=== PATIENT | female | born 1950 | race Caucasian/White ===

== ENCOUNTER → 2023-08-23 11:07 | Outpatient (REF) | payer MEDICARE, BC, SELFPAY ==
[2023-08-23 11:42] LABS: % Basophils 0.6 % (0-2); % Eosinophils 0.8 % (0-6); % Immature Granulocytes 0.2 % (0-0.5); % Lymphocytes 35.3 % (20.5-51.1); % Monocytes 8.9 % (1.7-9.3); % Neutrophils 54.2 % (42.2-75.2); Absolute Lymphocytes 1.7 10^3/uL (1.2-3.4); Absolute Monocytes 0.4 10^3/uL (0.1-0.6); Absolute Neutrophils 2.6 10^3/uL (1.4-6.5); Hematocrit 33.4 % (37.0-47.0); Hemoglobin 11.4 g/dL (12.0-16.0); Mean Corp Hgb Conc. 34.1 g/dL (33.0-37.0); Mean Corpuscular Hgb 33.5 pg (27.0-31.0); Mean Corpuscular Volume 98.2 fL (81.0-99.0); Mean Platelet Volume 9.1 fL (7.4-10.4); Nucleated Red Blood Cells % 0 %; Platelet Count 299 10^3/uL (130-400); Red Cell Dist. Width 12.8 % (11.5-14.5); White Blood Cell Count 4.9 10^3/uL (4.8-10.8)
[2023-08-23 12:03] LABS: Blood Urea Nitrogen 12 mg/dl (7-17); Calcium 9.2 mg/dl (8.4-10.2); Carbon Dioxide 27 mmol/L (22-30); Chloride 100 mmol/L (98-107); Glucose 98 mg/dl (70-99); Potassium 4.7 mmol/L (3.5-5.1); Sodium 130 mmol/L (135-145); eGFR > 60.00
== END ==
LOC: REG 11:07
PROVIDERS: ATTENDING PHYSICIAN Nurse Practitioner Family
DX: Z01.818 Encounter for other preprocedural examination (principal)
CPT/HCPCS: 36415; 80048; 85025; 93005

== ENCOUNTER → 2024-10-18 11:34 | Outpatient (REF) | payer MEDICARE, BC, SELFPAY | LOC: HWRAD 11:34 | PROVIDERS: ATTENDING PHYSICIAN Nurse Practitioner Primary Care | DX: E78.2 Mixed hyperlipidemia (principal) | CPT/HCPCS: 75571 ==

== ENCOUNTER → 2024-12-05 09:10 | Outpatient (REF) | payer MEDICARE, BC, SELFPAY ==
[2024-12-05 09:44] LABS: % Basophils 0.2 % (0-2); % Eosinophils 0.7 % (0-6); % Immature Granulocytes 0.4 % (0-0.5); % Lymphocytes 32.2 % (20.5-51.1); % Monocytes 8.5 % (1.7-9.3); Absolute Lymphocytes 1.8 10^3/uL (1.2-3.4); Absolute Monocytes 0.5 10^3/uL (0.1-0.6); Absolute Neutrophils 3.3 10^3/uL (1.4-6.5); Hematocrit 35.1 % (37.0-47.0); Hemoglobin 11.8 g/dL (12.0-16.0); Mean Corp Hgb Conc. 33.6 g/dL (33.0-37.0); Mean Corpuscular Hgb 34.7 pg (27.0-31.0); Mean Corpuscular Volume 103.2 fL (81.0-99.0); Mean Platelet Volume 9.1 fL (7.4-10.4); Nucleated Red Blood Cells % 0 %; Platelet Count 283 10^3/uL (130-400); Red Cell Dist. Width 13.9 % (11.5-14.5); White Blood Cell Count 5.6 10^3/uL (4.8-10.8)
[2024-12-05 09:45] VITALS: BP 154/83; BP 158/68; BP_SYST 82; BP_SYST 91
[2024-12-05 09:55] LABS: PT 12.6 Sec (11.4-14.6)
[2024-12-05] MEDS: ATIVAN 0.5 MG IV (10:13)
[2024-12-05] MEDS: NSS (PRESERVATIVE FREE) 0.25 ML IV (10:14)
[2024-12-05 11:07] VITALS: BP 139/78; BP_SYST 81
[2024-12-05 11:10] VITALS: BP 124/84; BP_SYST 85
[2024-12-05 11:15] VITALS: BP 142/77; BP_SYST 81
== END ==
LOC: RADI 09:10
PROVIDERS: ATTENDING PHYSICIAN Internal Medicine Hematology & Oncology; FAMILY PHYSICIAN Nurse Practitioner Primary Care
DX: D47.2 Monoclonal gammopathy (principal); D68.8 Other specified coagulation defects
CPT/HCPCS: 88305; 88311; 88312; 36415; 38222; 77012; 85025; 85610; 88313

== ENCOUNTER → 2025-01-01 09:08 | Outpatient (REF) | payer MEDICARE, BC, SELFPAY | LOC: RCS 09:08 | PROVIDERS: ATTENDING PHYSICIAN Nurse Practitioner Primary Care; OTHER PHYSICIAN Internal Medicine Hematology & Oncology | DX: I10 Essential (primary) hypertension (principal); E78.2 Mixed hyperlipidemia; R06.09 Other forms of dyspnea | CPT/HCPCS: 93306 ==

== ENCOUNTER → 2025-02-13 11:42 | Outpatient (REF) | payer MEDICARE, BC, SELFPAY ==
[2025-02-13 12:32] LABS: Hematocrit 33.3 % (37.0-47.0); Hemoglobin 11.3 g/dL (12.0-16.0); Mean Corp Hgb Conc. 33.9 g/dL (33.0-37.0); Mean Corpuscular Volume 100.0 fL (81.0-99.0); Nucleated Red Blood Cells % 0 %; Platelet Count 283 10^3/uL (130-400); Red Cell Dist. Width 12.4 % (11.5-14.5)
[2025-02-13 12:55] LABS: Blood Urea Nitrogen 12 mg/dl (7-17); Calcium 8.8 mg/dl (8.4-10.2); Carbon Dioxide 25 mmol/L (22-30); Chloride 99 mmol/L (98-107); Glucose 87 mg/dl (70-99); Potassium 4.6 mmol/L (3.5-5.1); Sodium 131 mmol/L (135-145); eGFR > 60.00
== END ==
LOC: REG 11:42
PROVIDERS: ATTENDING PHYSICIAN Student in an Organized Health Care Education/Training Program
DX: Z01.818 Encounter for other preprocedural examination (principal)
CPT/HCPCS: 36415; 80048; 85025; 93005

== ENCOUNTER 2025-02-26 06:14 | Day surgery (SDC) | payer MEDICARE, BC, SELFPAY ==
[2025-02-26 08:27] VITALS: BMI 25.4
[2025-02-26 08:31] VITALS: BMI 25.4
[2025-02-26] MEDS: CELEBREX 200 MG PO (08:48)
[2025-02-26] MEDS: NORMOSOL-R/PLASMALYTE-A 1000 IV (08:49)
[2025-02-26 08:54] VITALS: BP 160/97
[2025-02-26 10:37] VITALS: BP 124/86
[2025-02-26 10:45] VITALS: BP 138/84
[2025-02-26 11:00] VITALS: BP 158/88
[2025-02-26 11:15] VITALS: BP 155/94
== END 2025-02-26 11:35 | disposition home or self-care (01) ==
LOC: SDS 06:14
PROVIDERS: ATTENDING PHYSICIAN Student in an Organized Health Care Education/Training Program
DX: T84.84XA Pain due to internal orthopedic prosthetic devices, implants and grafts, initial encounter (principal)
CPT/HCPCS: 20680

== ENCOUNTER → 2025-04-04 14:42 | Outpatient (REF) | payer MEDICARE, BC, SELFPAY | LOC: HWRAD 14:42 | PROVIDERS: ATTENDING PHYSICIAN Nurse Practitioner Primary Care | DX: E04.1 Nontoxic single thyroid nodule (principal) | CPT/HCPCS: 76536 ==

== ENCOUNTER → 2025-04-16 13:45 | Outpatient (REF) | payer MEDICARE, BC, SELFPAY | LOC: EMG 13:45 | PROVIDERS: ATTENDING PHYSICIAN Internal Medicine Rheumatology; FAMILY PHYSICIAN Nurse Practitioner Primary Care | DX: R20.0 Anesthesia of skin (principal) | CPT/HCPCS: 95886; 95911 ==

== ENCOUNTER → 2025-05-19 17:40 | Outpatient (REF) | payer MEDICARE, BC, SELFPAY | LOC: WDC 17:40 | PROVIDERS: ATTENDING PHYSICIAN Nurse Practitioner Primary Care | DX: Z12.31 Encounter for screening mammogram for malignant neoplasm of breast (principal) | CPT/HCPCS: 77063; 77067 ==

== ENCOUNTER 2025-07-05 14:33 | Emergency (ER) | payer MEDICARE, BC, SELFPAY ==
[2025-07-05 14:34] VITALS: BP 180/110
--- NOTE | 2025-07-05 15:53 | ED.GENMED ---
History of Present Illness
<Jason Kelly PA-C - Last Filed: 07/05/25 19:59>
General
Chief Complaint: Facial Problem
Time Seen by Provider: 07/05/25 15:23
History of Present Illness
History of Present Illness:
74-year-old female presents to the emergency department for evaluation as well as purulent discharge nasal tad past 2 days, reports she had a fall a week ago resulting in a puncture wound to the right upper lip and right nare, progressively symptom
worsened with purulent discharge 2 days ago. Denies any fevers or chills.
Review of Systems
<Jason Kelly PA-C - Last Filed: 07/05/25 19:59>
Review of Systems
Allergies reviewed?: Yes
All Other Systems: ROS reviewed and negative except as documented in HPI and ROS
Phy Exam
<Jason Kelly PA-C - Last Filed: 07/05/25 19:59>
Physical Exam
Physical Exam:
GEN: Well appearing, NAD, WDWN
HEENT: Oral mucosa moist, no scleral icterus. Upper lip with a minor abrasion just inferior to the right nare. There is a ulceration 1 to 2 mm in depth with active purulent discharge to the right nasal tad with pustular lesions to the nasal
septum, no bogginess of the inferior turbinate, no nasal septal hematoma
Cardiac: Regular rate
Lung: No respiratory distress, no tachypnea
MSK: No gross deformity or injuries
Skin: Good color, no pallor or jaundice, no rashes
Neuro: AO x3, moves all extremities freely
Psych: Calm, cooperative
Course
<Jason Kelly PA-C - Last Filed: 07/05/25 19:59>
Orders/Labs/Results
Orders:
Orders
07/05/25 15:32
Amoxicillin 875 mg/Clav 125 mg [Augmentin 875 mg/125 mg] 1 tablet PO NOW STA
Doxycycline [Vibramycin] 100 mg PO NOW STA
Mupirocin [Bactroban 2% Ointment] See Dose Instructions NASAL NOW STA
07/05/25 15:39
Mupirocin [Bactroban 2% Ointment] See Dose Instructions NASAL NOW STA
07/05/25 15:54
Doxycycline [Vibramycin] 100 mg PO NOW STA
07/05/25 16:23
Complete Blood Count/With Diff Urgent
Comprehensive Metabolic Panel Urgent
Wound Culture [Wound/Abscess/Other Culture] Urgent
MAGGI Source: Face
Specimen Description: Right
Date Specimen was Collected: 07/05/25
Time Specimen was Collected: 15:40
Comment: Sonny Evans
Abnormal Lab Results
07/05/25
16:23
RBC 2.98 L 10^6/uL
(4.20-5.40)
Hgb 10.1 L g/dL
(12.0-16.0)
Hct 30.1 L %
(37.0-47.0)
MCV 101.0 H fL
(81.0-99.0)
MCH 33.9 H pg
(27.0-31.0)
Sodium 129 L mmol/L
(135-145)
Glucose 106 H mg/dl
(70-99)
Total Bilirubin < 0.1 L mg/dl
(0.2-1.3)
07/05/25 16:23
07/05/25 16:23
Vital Signs
Initial and Last Documented VS:
Initial Vital Signs
Temp Pulse Resp BP Pulse Ox
97.5 F 61 19 180/110 99
07/05/25 14:34 07/05/25 14:34 07/05/25 14:34 07/05/25 14:34 07/05/25 14:34
Last Documented Vital Signs
Temp Pulse Resp BP Pulse Ox
97.5 F 87 16 158/96 98
07/05/25 14:34 07/05/25 17:06 07/05/25 17:06 07/05/25 17:06 07/05/25 17:06
<Narendra Lim, DO - Last Filed: 07/05/25 15:58>
Orders/Labs/Results
Orders:
Orders
07/05/25 15:32
Amoxicillin 875 mg/Clav 125 mg [Augmentin 875 mg/125 mg] 1 tablet PO NOW STA
Doxycycline [Vibramycin] 100 mg PO NOW STA
Mupirocin [Bactroban 2% Ointment] See Dose Instructions NASAL NOW STA
07/05/25 15:39
Mupirocin [Bactroban 2% Ointment] See Dose Instructions NASAL NOW STA
07/05/25 15:54
Doxycycline [Vibramycin] 100 mg PO NOW STA
07/05/25 16:23
Complete Blood Count/With Diff Urgent
Comprehensive Metabolic Panel Urgent
Wound Culture [Wound/Abscess/Other Culture] Urgent
MAGGI Source: Face
Specimen Description: Right
Date Specimen was Collected: 07/05/25
Time Specimen was Collected: 15:40
Comment: Sonny Evans
Abnormal Lab Results
07/05/25
16:23
RBC 2.98 L 10^6/uL
(4.20-5.40)
Hgb 10.1 L g/dL
(12.0-16.0)
Hct 30.1 L %
(37.0-47.0)
MCV 101.0 H fL
(81.0-99.0)
MCH 33.9 H pg
(27.0-31.0)
Sodium 129 L mmol/L
(135-145)
Glucose 106 H mg/dl
(70-99)
Total Bilirubin < 0.1 L mg/dl
(0.2-1.3)
07/05/25 16:23
07/05/25 16:23
Vital Signs
Initial and Last Documented VS:
Initial Vital Signs
Temp Pulse Resp BP Pulse Ox
97.5 F 61 19 180/110 99
07/05/25 14:34 07/05/25 14:34 07/05/25 14:34 07/05/25 14:34 07/05/25 14:34
Last Documented Vital Signs
Temp Pulse Resp BP Pulse Ox
97.5 F 87 16 158/96 98
07/05/25 14:34 07/05/25 17:06 07/05/25 17:06 07/05/25 17:06 07/05/25 17:06
<Jason Kelly PA-C - Last Filed: 07/05/25 19:59>
MDM/Problems Addressed
MDM/Problems Addressed:
Patient was seen in consultation by ENT who agrees with plan for oral and topical antibiotics. No indication at this time for CT imaging or packing due to the small wound. Patient was started on Augmentin and doxycycline, wound culture of
purulence was sent for appropriate tailoring of antibiotics as needed. Outpatient ENT follow-up discussed
<Jason Kelly PA-C - Last Filed: 07/05/25 19:59>
*Pulse Oximetry
SaO2: 99
Patient hypoxic: no
*Critical Care Note
Total Time (30-74mins, 75-104mins- exclusive of procedures): Not Applicable
ED Attending Note
<Jason Kelly PA-C - Last Filed: 07/05/25 19:59>
-
Portions of this chart may have been created with voice recognition software.� Occasional wrong word or��sound alike� substitutions may have occurred due to the inherent limitations of voice recognition software.
<Narendra Lim DO - Last Filed: 12/27/25 15:58>
ED Attending Note
Patient seen and examined by attending physician: Yes
I performed the substantive portion of visit, reviewed & personally made and approve the management plan that is documented in note by myself or BRIANA.: Yes
ED Attending Note:
I have seen and evaluated the patient with a [id number] encounter. I have spoken to the advance practicer provider and involved in the medical history, the physical exam, medical decision making.
Evaluation and management service: agree unless noted differently below.
Results interpretation: agree unless noted differently below.
Focused HPI: 74-year-old female presenting with swelling and pain in her nose after recent slip and fall
Physical exam: Abrasion in the right nostril along septum with small opening and active discharge. Approximate 1.5 cm cut noted where inside lip meets gingiva to right upper lip
Medical Decision Making: Will start antibiotics to cover MRSA given the discharge. Will discuss case with ENT to discuss continued follow-up
Discharge Plan
Departure
Patient Disposition: Home (Routine Discharge)
Date of Disposition: 07/05/25
Time of Disposition: 16:52
Patient with high blood pressure during this ER visit?: No
Discharge Problem:
Nasal vestibulitis
Instructions: Cellulitis (skin infection) in adults - ED (DC)
Prescriptions:
New
amoxicillin-pot clavulanate 875-125 mg tablet
1 tab PO BID 7 Days Qty: 14 0RF
doxycycline hyclate 100 mg tablet
100 mg PO BID 7 Days Qty: 14 0RF
mupirocin [Centany] 2 % ointment
1 applic topical BID 14 Days Qty: 22 1RF
No Action
meloxicam 15 mg Tablet
15 mg PO DAILY
amlodipine 5 mg Tablet
5 mg PO HS
levothyroxine 88 mcg Tablet
88 mcg PO DAILY
omeprazole 20 mg Capsule,Delayed Release(Dr/Ec)
20 mg PO DAILY
cholecalciferol (vitamin D3) [Vitamin D3] 25 mcg (1,000 unit) Capsule
25 mcg PO DAILY
olmesartan 40 mg Tablet
40 mg PO HS
budesonide-formoterol 80-4.5 mcg/actuation Hfa Aerosol Inhaler
2 puff INHALATION BID
cetirizine [Zyrtec] 10 mg Tablet
10 mg PO HS
acetaminophen 500 mg Tablet
1,000 mg PO Q6H PRN (Reason: pain)
diphenhydramine HCl [Benadryl] 25 mg Capsule
25 - 50 mg PO HS
gabapentin 300 mg Capsule
300 mg PO HS
magnesium 200 mg Tablet
400 mg PO HS
duloxetine 30 mg Capsule,Delayed Release(Dr/Ec)
30 mg PO DAILY
vitamin E (dl, acetate) 180 mg (400 unit) Capsule
180 mg PO DAILY
Referrals:
Ruthie Sanchez CRNP [Family Provider, Internal Medicine]
Gustavo Cotto MD [Active, Otology]
Activity Restrictions/Additional Instructions:
Twice daily nasal ointment with merocel sponge
Follow up with ENT as needed
Interventions
Interventions:
*General Assessment Last Done: 07/05/25 14:35
*Neglect/Abuse Screening Last Done: 07/05/25 14:35
*ED COVID-19 Vaccine History Last Done: 07/05/25 14:35
*ED Influenza Vaccine History Last Done: 07/05/25 14:35
[facility] Fall Risk Assessment Tool Last Done: 07/05/25 16:26
*Risk Screen - Suicide (C-SSRS) Last Done: 07/05/25 14:35
*Nursing Disposition Last Done: 07/05/25 17:07
ED- Neurological Assessment Last Done: 07/05/25 16:24
ED-Skin Assessment Last Done: 07/05/25 16:24
Discharge Date and Time
Discharge Date/Time: 07/05/25 17:11
Print Language: LITHUANIAN
[2025-07-05] MEDS: AUGMENTIN 875 MG/125 MG 1 TABLET PO (15:58)
[2025-07-05] MEDS: VIBRAMYCIN 100 MG PO (15:58)
[2025-07-05] MEDS: BACTROBAN 2% OINTMENT 1 APPLIC NASAL (15:59)
[2025-07-05 16:37] LABS: Hematocrit 30.1 % (37.0-47.0); Hemoglobin 10.1 g/dL (12.0-16.0); Mean Corp Hgb Conc. 33.6 g/dL (33.0-37.0); Mean Corpuscular Volume 101.0 fL (81.0-99.0); Nucleated Red Blood Cells % 0 %; Platelet Count 305 10^3/uL (130-400); Red Cell Dist. Width 13.9 % (11.5-14.5)
[2025-07-05 16:50] LABS: ALT (SGPT) 27 U/L (0-35); AST (SGOT) 30 U/L (14-36); Albumin 3.8 g/dl (3.5-5.0); Alkaline Phosphatase 67 U/L (38-126); Blood Urea Nitrogen 15 mg/dl (7-17); Calcium 8.6 mg/dl (8.4-10.2); Carbon Dioxide 26 mmol/L (22-30); Chloride 98 mmol/L (98-107); Glucose 106 mg/dl (70-99); Potassium 4.1 mmol/L (3.5-5.1); Sodium 129 mmol/L (135-145); Total Protein 6.7 g/dl (6.3-8.2); eGFR > 60.00
--- NOTE | 2025-07-05 17:05 | CON.MD ---
Consultation - Medical
-
Chief complaint: Nasal infection
History of present illness: This 74-year-old woman fell down a week ago while carrying a tray. When she fell her nose struck the tray as did her upper lip. She experienced bleeding at the time. She now has purulent drainage from a nasal wound at
the base of the right columella. She developed tenderness in this area couple of days ago. She had not been on any antibiotics prior to today. She is otherwise healthy. She presents with her daughter, who is an emergency room doctor at [employer]
[facility].
Past medical history:
Allergies: Cat dander causes eye swelling and congestion
Home medications: Acetaminophen 1000 mg p.o. every 6 hours as needed, amlodipine 5 mg p.o. at bedtime, amoxicillin/potassium clavulanate 1 tablet p.o. twice daily, budesonide/formoterol 2 puffs twice daily, cetirizine 10 mg p.o. at bedtime,
colecalciferol 25 mcg p.o. daily, diphenhydramine 25 to 50 mg p.o. at bedtime as needed, doxycycline 100 mg p.o. twice daily, duloxetine 30 mg p.o. daily, gabapentin 300 mg p.o. nightly, levothyroxine 88 mcg p.o. daily, magnesium 400 mg p.o.
nightly, meloxicam 15 mg p.o. daily,
7 applied topically to the affected area of the nose, olmesartan 40 mg p.o. nightly, omeprazole 20 mg p.o. daily, vitamin EE 180 mg p.o. daily
Chronic medical problems, history of acid reflux, history of hypertension, history of hypothyroidism, history of neuralgia, history of allergic rhinitis, history of lung disease
Family history: Asked and is noncontributory for this problem
Hospitalizations: Noncontributory
Review of systems: Tenderness at base of nose and upper lip, swelling of upper lip and nose, negative for shortness of breath, negative for chest pain
ENT examination
Constitutional: Well-nourished, normally developed, normal mood/affect; alert and oriented, pleasant, NAD well nourished, normally developed.
Head/face: No pathologic scars, lesions, or masses, normal salivary glands, good facial strength, palpation of the face does not reveal any sinus tenderness.
Eyes: The pupils are equal, round, and reactive to light and accommodation. Extraocular movements are intact.
Ears: The auricles are normal bilaterally. The external auditory canals are clear bilaterally. The tympanic membranes are intact and mobile bilaterally and both middle ears are clear. No fluid or infection was noted.
Cranial nerves: Cranial nerves II through XII are intact bilaterally.
Nose: The external nose shows a small draining wound at the base of her columella on the right side. There is some purulent drainage extruded with pressure but no large collection is present. Purulent drainage has been cultured. The patient
has normal mucosa with an adequate airway and no evidence of infection.
Oropharynx: Mouth shows normal mucosa a laceration in the upper labial sulcus just to the right of midline. This is healing by secondary intention. No large collection is present. Oropharynx is normal. Tongue and floor of mouth shows no
evidence of mucosal abnormality or masses. There is no evidence of infection.
Neck: No adenopathy, neck is supple.
Voice: Normal tone, volume and content; without hoarseness.
Assessment/plan: The patient suffered a laceration of her upper labial sulcus inside her mouth and an injury to her nose. She has an abrasion of her upper lip which does not appear to be causing any problems. She has some purulent drainage
although it is fairly minimal. I do not think she needs packing at this point as there is no really significant collection but she should benefit from antibiotics. I think a combination of Augmentin to cover oral jade and doxycycline to get
better coverage of staph would be appropriate. She can stop the Augmentin when she stops draining. I will plan on seeing her in the office if she has persistent problems.
Consultation
-
Date/Time Consultation Requested: 07/05/25 4p
Date/Time Consultation Performed: 07/05/25 445p
Requesting Provider: ER
Performing Provider: Yadiel
Reason for Consultation: nasal infection
[2025-07-05 17:06] VITALS: BP 158/96
== END 2025-07-05 17:11 | disposition home or self-care (01) ==
LOC: EMR 14:33
PROVIDERS: Physician Assistant; EMERGENCY PHYSICIAN Student in an Organized Health Care Education/Training Program; FAMILY PHYSICIAN Nurse Practitioner Primary Care
DX: S00.511A Abrasion of lip, initial encounter (principal); L08.9 Local infection of the skin and subcutaneous tissue, unspecified; W19.XXXA Unspecified fall, initial encounter; I10 Essential (primary) hypertension; E03.9 Hypothyroidism, unspecified; Z79.899 Other long term (current) drug therapy
CPT/HCPCS: 99283; 80053; 85025; 87070; 87077; 87147; 87205